=== PATIENT | male | born 1940 | race Caucasian/White ===

== ENCOUNTER 2019-02-22 09:55 | Inpatient (IN) | payer MEDICARE ==
[~2019-02-22] VITALS: Ht 177.8 cm; Wt 68.0 kg
[2019-02-22 10:25] LABS: HEMATOCRIT 35 % (40-54); HEMOGLOBIN 11.9 G/DL (13.3-17.7); MEAN CORPUSCULAR HEMOGLOBIN 31 PG (25-34); MEAN CORPUSCULAR HGB CONC 34 G/DL (32-36); MEAN CORPUSCULAR VOLUME 90 FL (80-99); PLATELET COUNT 259 10^3/uL (130-400); RED CELL DISTRIBUTION WIDTH 13.7 % (10.0-14.5); WHITE BLOOD COUNT 7.5 10^3/uL (4.3-11.0)
[2019-02-22 10:26] LABS: BASOPHILS % (AUTO) 1 % (0-10); EOSINOPHILS # (AUTO) 0.3 10^3/uL (0.0-0.3); EOSINOPHILS % (AUTO) 4 % (0-10); LYMPHOCYTES % (AUTO) 26 % (12-44); MEAN PLATELET VOLUME 8.8 FL (7.4-10.4); MONOCYTES # (AUTO) 0.8 X 10^3 (0.0-1.0); MONOCYTES % (AUTO) 11 % (0-12); NEUTROPHILS # (AUTO) 4.3 X 10^3 (1.8-7.8); NEUTROPHILS % (AUTO) 57 % (42-75)
[2019-02-22] MEDS ORDERED: ASPIRIN 81 MG CHEW (CHILDREN'S ASA) PO ONE (10:30)
--- NOTE | 2019-02-22 10:34 | Diagnostic Imaging Report ---
Indication: Chest pain, shortness of breath. FINDINGS: The lungs are clear although hyperexpanded. The lungs are hyperexpanded. There is some developing infiltrate in the right perihilar and medial right lung base is suspected. Correlate for clinical findings of pneumonia. There is no overt failure pattern. No pleural fluid. Impression: Air trapping and likely COPD however medial right basilar and infrahilar developing infiltrate radiographically suggested. Dictated by: Dictated on workstation # [id number]
[2019-02-22 10:39] LABS: PROTHROMBIN TIME PATIENT 13.5 SEC (12.2-14.7)
[2019-02-22] MEDS ORDERED: cefTRIAXone FOR IV USE 1,000 MG in WATER (STERILE) FOR INJECTION 10 ML IV ONE (10:45)
[2019-02-22 10:53] LABS: BUN/CREATININE RATIO 20; CARBON DIOXIDE 18 MMOL/L (21-32); CHLORIDE 102 MMOL/L (98-107); CREATININE SERUM 1.88 MG/DL (0.60-1.30); GFR ESTIMATED 35; SODIUM 138 MMOL/L (135-145)
[2019-02-22 10:54] LABS: ALANINE AMINOTRANSFERASE 10 U/L (0-55); ALBUMIN 4.3 GM/DL (3.2-4.5); ALKALINE PHOSPHATASE 85 U/L (40-136); BILIRUBIN,TOTAL 0.4 MG/DL (0.1-1.0); CALCIUM 9.9 MG/DL (8.5-10.1); GLUCOSE 180 MG/DL (70-105); TOTAL PROTEIN 7.3 GM/DL (6.4-8.2)
--- NOTE | 2019-02-22 11:00 | NUR ---
Report called to Karen MI.
--- NOTE | 2019-02-22 11:15 | NUR ---
EMS departing at this time. NIBP 106/56. HR-83 regular.
--- NOTE | 2019-02-22 11:23 | ED Chest Pain ---
General Chief Complaint: Chest Pain Stated Complaint: CHEST PAIN,ABD PAIN Nursing Triage Note: Pt arrival to ER via [facility] reporting 911 call for CP and abd distention. CP began as "indigestion" c/o 299 and abd distention began 844. Pt has Alzheimers and cannot describe or elaborate sx. helps with caregiving. No meds administered. Nursing Sepsis Screen: No Definite Risk Source: patient, family, EMS Exam Limitations: no limitations History of Present Illness Date Seen by Provider: Feb 22, 2019 Time Seen by Provider: 09:57 Initial Comments This 78-year-old gentleman presents to the emergency room via EMS after developing chest pain this morning around 03:00. Family became concerned about his chest pain and he seemed to have difficulty breathing. EMS was activated by family. Patient has dementia but is normally independent of his activities of daily living. He normally dresses himself, makes a pot of coffee, and takes the dog out as part of his morning routine. Blood sugar for EMS was 170. EMS reports blood pressures were widely variable with systolic blood pressures ranging anywhere from 87 to the 200s. Oxygen saturation was 87 percent on room air. They applied nasal cannula at 2 L/m. Patient denies any history of cardiac problems other than syncope and some rhythm issues years ago at [facility] in [place]. He was put on carvedilol at that time and has not had any problems since. Blood pressure on arrival is 95/60 with a MAP of 67. Patient reports pain is worse with inspiration and he feels a little short of breath. Allergies and Home Medications Allergies Coded Allergies: No Known Drug Allergies (Unverified , 02/22/19) Patient Home Medication List Home Medication List Reviewed: Yes Review of Systems Review of Systems Constitutional: no symptoms reported EENTM: No Symptoms Reported Respiratory: See HPI Cardiovascular: See HPI Gastrointestinal: See HPI Genitourinary: No Symptoms Reported Musculoskeletal: no symptoms reported Skin: no symptoms reported Psychiatric/Neurological: See HPI Endocrine: See HPI Hematologic/Lymphatic: No Symptoms Reported Past Avkxlpk-Etrciu-Rydhbs Hx Past Med/Social Hx: Reviewed and Corrections made Patient Social History Alcohol Use: Denies Use Recreational Drug Use: No Smoking Status: Former Smoker Type Used: Cigarettes Former Smoker, Quit: Jun 25, 1976 2nd Hand Smoke Exposure: No Recent Foreign Travel: No Contact w/Someone Who Travel: No Recent Infectious Disease Expo: No Recent Hopitalizations: No Physical Abuse: No Sexual Abuse: No Mistreated: No Fear: No Immunizations Up To Date Tetanus Booster (TDap): Unknown Seasonal Allergies Seasonal Allergies: No Past Medical History Surgeries: Yes (ELBOW FX, KNEE, AND FINGER) Orthopedic Respiratory: No Cardiac: Yes High Cholesterol, Irregular Heartbeat, Syncope Neurological: Yes (ALZHEIMERS) Dementia Genitourinary: Yes Benign Prostatic Hyperpl Gastrointestinal: No Musculoskeletal: Yes Gout Endocrine: Yes Diabetes, Non-Insulin dep HEENT: No Cancer: No Psychosocial: No Integumentary: No Blood Disorders: No Physical Exam Vital Signs Vital Signs - First Documented 02/22/19 10:00 FiO2 93 Capillary Refill : Less Than 3 Seconds Height, Weight, BMI Height: 5'10.00" Weight: 150lbs. oz. 68.816596sl; BMI Method:Actual General Appearance: No Apparent Distress, WD/WN HEENT: PERRL/EOMI, Normal ENT Inspection, Pharynx Normal Neck: Normal Inspection; No JVD Respiratory: No Accessory Muscle Use, No Respiratory Distress, Crackles (bibasal are, right greater than left), Other (subtle increased work of breathing) Cardiovascular: Regular Rate, Rhythm, No Edema, No Murmur, Normal Peripheral Pulses Gastrointestinal: Normal Bowel Sounds, Non Tender, Soft Extremity: Normal Capillary Refill, Normal Inspection, No Pedal Edema Neurologic/Psychiatric: Alert, No Motor/Sensory Deficits, Normal Mood/Affect, card lacer II-XII Norm as Tested, Other (dementia at baseline) Skin: Normal Color, Warm/Dry Focused Exam Lactate Level 02/22/19 10:10: Lactic Acid Level 2.25*H Lactic Acid Level Laboratory Tests Test 02/22/19 10:10 Lactic Acid Level 2.25 MMOL/L (0.50-2.00) *H Progress/Results/Core Measures Results/Orders Lab Results Laboratory Tests Test 02/22/19 10:10 Range/Units White Blood Count 7.5 4.3-11.0 10^3/uL Red Blood Count 3.86 L 4.35-5.85 10^6/uL Hemoglobin 11.9 L 13.3-17.7 G/DL Hematocrit 35 L 40-54 % Mean Corpuscular Volume 90 80-99 FL Mean Corpuscular Hemoglobin 31 25-34 PG Mean Corpuscular Hemoglobin Concent 34 32-36 G/DL Red Cell Distribution Width 13.7 10.0-14.5 % Platelet Count 259 130-400 10^3/uL Mean Platelet Volume 8.8 7.4-10.4 FL Neutrophils (%) (Auto) 57 42-75 % Lymphocytes (%) (Auto) 26 12-44 % Monocytes (%) (Auto) 11 0-12 % Eosinophils (%) (Auto) 4 0-10 % Basophils (%) (Auto) 1 0-10 % Neutrophils # (Auto) 4.3 1.8-7.8 X 10^3 Lymphocytes # (Auto) 2.0 1.0-4.0 X 10^3 Monocytes # (Auto) 0.8 0.0-1.0 X 10^3 Eosinophils # (Auto) 0.3 0.0-0.3 10^3/uL Basophils # (Auto) 0.0 0.0-0.1 10^3/uL Prothrombin Time 13.5 12.2-14.7 SEC INR Comment 1.0 0.8-1.4 Activated Partial Thromboplast Time 30 24-35 SEC Sodium Level 138 135-145 MMOL/L Potassium Level 5.0 3.6-5.0 MMOL/L Chloride Level 102 98-107 MMOL/L Carbon Dioxide Level 18 L 21-32 MMOL/L Anion Gap 18 H 5-14 MMOL/L Blood Urea Nitrogen 37 H 7-18 MG/DL Creatinine 1.88 H 0.60-1.30 MG/DL Estimat Glomerular Filtration Rate 35 BUN/Creatinine Ratio 20 Glucose Level 180 H 70-105 MG/DL Lactic Acid Level 2.25 *H 0.50-2.00 MMOL/L Calcium Level 9.9 8.5-10.1 MG/DL Corrected Calcium 9.7 8.5-10.1 MG/DL Total Bilirubin 0.4 0.1-1.0 MG/DL Aspartate Amino Transf (AST/SGOT) 13 5-34 U/L Alanine Aminotransferase (ALT/SGPT) 10 0-55 U/L Alkaline Phosphatase 85 40-136 U/L Troponin I < 0.30 <0.30 NG/ML Pro-B-Type Natriuretic Peptide 2363.0 H <75.0 PG/ML Total Protein 7.3 6.4-8.2 GM/DL Albumin 4.3 3.2-4.5 GM/DL My Orders Orders - ELVIA KING MD Cbc With Automated Diff (02/22/19 10:01) Comprehensive Metabolic Panel (02/22/19 10:01) Blood Culture (02/22/19 10:01) Sputum Culture (02/22/19 10:01) Urinalysis (02/22/19 10:01) Urine Culture (02/22/19 10:01) Protime With Inr (02/22/19 10:01) Partial Thromboplastin Time (02/22/19 10:01) Chest 1 View Ap/Pa Only (02/22/19 10:01) Ed Iv/Invasive Line Start (02/22/19 10:01) Ed Iv/Invasive Line Start (02/22/19 10:01) Vital Signs Adult Sepsis Patie Q15M (02/22/19 10:01) O2 (02/22/19 10:01) Remove Rings In Anticipation O (02/22/19 10:01) Lactic Acid Analyzer (02/22/19 10:01) Troponin I (02/22/19 10:01) Probnp Fs (02/22/19 10:01) Ekg Tracing (02/22/19 10:01) Monitor-Rhythm Ecg Trace Only (02/22/19 10:01) Aspirin Chewable Tablet (Baby Aspirin Ch (02/22/19 10:30) Ceftriaxone For Iv Use (Rocephin For I (02/22/19 10:45) Medications Given in ED Current Medications Medications Dose Ordered Sig/Chandan Route Start Time Stop Time Status Last Admin Dose Admin Aspirin 324 mg ONCE ONCE PO 02/22/19 10:30 02/22/19 10:31 DC 02/22/19 10:46 324 MG Vital Signs/I&O 02/22/19 02/22/19 02/22/19 09:55 09:55 10:00 Temp 97.0 Pulse 90 Resp 24 B/P (MAP) 95/60 (72) Pulse Ox 92 O2 Delivery Nasal Cannula Nasal Cannula Nasal Cannula O2 Flow Rate 2.00 3.0 3.00 FiO2 93 Blood Pressure Mean: 72 Progress Progress Note : Time: 11:18 Progress Note Patient presented with chest pain. There is also some concern for possible sepsis as he had pleuritic chest pain and was thought to be hypotensive in the field. Chest pain workup and septic workup were pursued. There was some suggestion of infiltrate on chest x-ray. Blood cultures and lactic acid were drawn and Rocephin was administered. Patient received aspirin. He did not require any treatment for pain. Nitroglycerin was not administered due to marginal blood pressures. IV fluids were initiated by EMS and continued. He received about 800 mL prior to transfer. Systolic blood pressure remained above 90 and MAP remained above 65 throughout his ER stay. Case was discussed with Dr. Francisco and EKG was reviewed by him. He requested transfer to the ICU at [place] as soon as possible. He departed from [place] at 11:20 in route to [facility]. Dr. Swain was the accepting physician. Dr. Sanders was also consulted. Initial ECG Impression Date: Feb 22, 2019 Initial ECG Impression Time: 10:02 Initial ECG Rate: 88 Initial ECG Rhythm: Normal Sinus Comment Sinus rhythm with ST depression most prominent in V4 and V5. No abnormal intervals or axis deviation. EKG was suggestive of ischemia. Diagnostic Imaging Diagonstic Imaging: Xray Plain Films/CT/US/NM/MRI: chest Comments Chest x-ray viewed by me and report reviewed. See report below: NAME: DANITZA MCINTYRE [facility] REC#: [id number] PT STATUS: ADM IN : 1940 PHYSICIAN: ELVIA KING MD ADMIT DATE: 02/22/19/ICU Signed Date of Exam: 02/22/19 CHEST 1 VIEW AP/PA ONLY Indication: Chest pain, shortness of breath. FINDINGS: The lungs are clear although hyperexpanded. The lungs are hyperexpanded. There is some developing infiltrate in the right perihilar and medial right lung base is suspected. Correlate for clinical findings of pneumonia. There is no overt failure pattern. No pleural fluid. Impression: Air trapping and likely COPD however medial right basilar and infrahilar developing infiltrate radiographically suggested. Dictated by: Dictated on workstation # [id number] Dict: 02/22/19 1027 Trans: 02/22/19 1103 Interpreted by: BRADLY CAZARES Electronically signed by: BRADLY CAZARES 02/22/19 1103 Departure Communication (Admissions) Time/Spoke to Admitting Phy: 10:20 Dr. Swain 11:16 Dr. Sanders 10:10 Dr. Francisco Impression Primary Impression: ST segment depression Additional Impressions: Chest pain Qualified Codes: R07.9 - Chest pain, unspecified Hypoxia Pulmonary infiltrate Renal failure Qualified Codes: N19 - Unspecified kidney failure Disposition: ADMITTED INPATIENT Condition: Improved Admissions Decision to Admit Reason: Admit from ER (General) Decision to Admit/Date: Feb 22, 2019 Time/Decision to Admit Time: 10:10 Transfer Time Spoke to Accepting Phy: 10:20 Transfer Progress Notes Patient was accepted for transfer to [facility] to the hospitalist service under Dr. Swain. Dr. Francisco and Dr. Sanders accept consult. Transfer Time: 11:18 Transfer Facility: [facility] Method of Transfer: EMS Departure-Patient Inst. Referrals: ROCIO MEZA DO (PCP/Family) Primary Care Physician ELVIA KING MD Feb 22, 2019 11:23
--- NOTE | 2019-02-22 11:27 | History & Physical-Hospitalist ---
History of Present Illness HPI/Chief Complaint Pt is an 78yoCM with a PMH of dementia, arrhythmia, and NIDDMII who presented to the ER with CC of chest pain. Family states it has been going on for a few weeks and they believed it to be indigestion and were trying to treat him with Tums and Pepcid. Despite this he continued to worsen and today brought him to the ER for evaluation by EMS. EMS reported hypotension in the field. He was found to have ST depression on EKG and was mildly hypotensive. Dr Escamilla discused the case with senior mobile solutions architect credentialing analyst who recommended expediated transfer to [facility] for evaluation for possible ACS. Upon work up he was found to have a pneumonia on CXR and was started on Rocephin. He is unable to provide any of this history due to dementia. His and daughter are at bedside to supplement history from the records. Source: family Exam Limitations: clinical condition Date Seen 02/22/19 Time Seen by a Provider: 11:22 Attending Physician Sheila Swain MD PCP Miguel Jolly DO Referring Physician Date of Admission Feb 22, 2019 at 10:44 Home Medications & Allergies Home Medications Reviewed patient Home Medication Reconciliation performed by pharmacy medication reconciliations morgue technician and/or nursing. Patients Allergies have been reviewed. Allergies Allergies Coded Allergies No Known Drug Allergies (Unverified02/22/19) Past Etwnrku-Hopask-Opzvef Hx Past Med/Social Hx: Reviewed Nursing Past Med/Soc Hx Patient Social History Marrital Status: Alcohol Use: Denies Use Recreational Drug Use: No Smoking Status: Former Smoker Former Smoker, Quit: Jun 25, 1976 Type Used: Cigarettes 2nd Hand Smoke Exposure: No Recent Foreign Travel: No Contact w/other who traveled: No Recent Hopitalizations: No Recent Infectious Disease Expo: No Immunizations Up To Date Tetanus Booster (TDap): Unknown Seasonal Allergies Seasonal Allergies: No Past Medical History Surgeries: Orthopedic Cardiac: High Cholesterol, Irregular Heartbeat Neurological: Dementia Genitourinary: Benign Prostatic Hyperpl Musculoskeletal: Gout Endocrine: Diabetes, Non-Insulin dep History of Blood Disorders: No Family History Reviewed Nursing Family Hx No Pertinent Family Hx Review of Systems ROS-Unable to Obtain: dementia Constitutional: see HPI Cardiovascular: chest pain Gastrointestinal: abdominal pain Physical Exam Physical Exam Vital Signs Vital Signs - First Documented 02/22/19 10:00 FiO2 93 Capillary Refill : Less Than 3 Seconds Height, Weight, BMI Height: 5'10.00" Weight: 150lbs. oz. 68.369023hh; BMI Method:Actual General Appearance: No Apparent Distress, Chronically ill, Thin HEENT: Moist Mucous Membranes; No Scleral Icterus (L), No Scleral Icterus (R) Neck: Non Tender, Supple; No JVD, No Thyromegaly Respiratory: Lungs Clear, No Respiratory Distress Cardiovascular: Regular Rate, Rhythm, No Murmur Gastrointestinal: Normal Bowel Sounds, Non Tender, Soft Extremity: Normal Capillary Refill, No Calf Tenderness, No Pedal Edema Neurologic/Psychiatric: Alert; No Aphasia; Disoriented; No Facial Droop Skin: Normal Color, Warm/Dry Results Results/Procedures Labs Laboratory Tests 02/22/19 10:10 Patient resulted labs reviewed. Imaging: Reviewed Imaging Report Assessment/Plan Admission Diagnosis CAP- right sided Admission Status: Inpatient Order (span 2 midnights) Reason for Inpatient Admission: see below Assessment and Plan right sided pneumonia- CAP PNA on CXR Elevated lactic but no other SIRS criteria Continue on Rocephin and Azithro Await cultures Chest pain ST depression on EKG Cardiology consulted, appreciate recs Troponin negative on presentation- will trend Plan for cardiac cath per Dr Francisco Dementia at baseline, advanced NIDDMII SSI Hold metformin in case need for cath Update: Returned to bedside at 1515 after cardiac cath to discuss results and goals of care. Cardiac cath revealed diffuse multivessel disease. Arrangements had originally kierra made to transfer to [facility] but family has elected not to pursue surgical management of CAD. Discussed at length their goals and ultimately they would like to proceed with treating his comfort only. Will transition to comfort measures only. If he stabilizes they would like discharge home with [facility]. Referral made to [facility]. Will transfer to the 4th floor. Time spent with family discussing goals of care [id number]. Diagnosis/Problems Diagnosis/Problems (1) ST segment depression Status: Acute (2) Chest pain Status: Acute Qualifiers: Chest pain type: unspecified Qualified Codes: R07.9 - Chest pain, unspecified (3) Pulmonary infiltrate Status: Acute (4) Hypoxia Status: Acute (5) Counseling regarding end of life decision making Clinical Quality Measures AMI/AHF: ASA po Prior to arrival: SHEILA Cantu MD Feb 22, 2019 11:27 am
[2019-02-22] MEDS ORDERED: BENZONATATE 100 MG (TESSALON) CAPSULE PO PRN (11:45)
[2019-02-22] MEDS ORDERED: ANTACID SUSP 30 ML UDC (MYLANTA) PO PRN (11:45)
[2019-02-22] MEDS ORDERED: ONDANSETRON 4 MG/2 ML (SDV) Z0FRAN IV PRN (11:45)
[2019-02-22] MEDS ORDERED: MELATONIN 3 MG TABLET PO PRN (11:45)
[2019-02-22] MEDS ORDERED: MILK OF MAGNESIA 400 MG/5 ML 30 ML UDC PO PRN (11:45)
[2019-02-22] MEDS ORDERED: ACETAMINOPHEN 325 MG TABLET PO PRN (11:45)
[2019-02-22] MEDS ORDERED: LIDOCAINE 1% INJ 20 ML 20 ML VIAL ONE (12:20)
[2019-02-22] MEDS ORDERED: fentaNYL INJECTION 100 MCG/2 ML AMP ONE (12:21)
[2019-02-22] MEDS ORDERED: HEParin (CATH LAB) 1,000 ML IV ONE ×2 (12:21→12:22)
[2019-02-22] MEDS ORDERED: NS IV 1000 ML 1,000 ML ONE (12:21)
[2019-02-22] MEDS ORDERED: MIDAZOLAM 5 MG/5 ML (VERSED) VIAL ONE (12:21)
--- NOTE | 2019-02-22 12:35 | Consultation-Cardiology ---
HPI-Cardiology Cardiology Consultation Date of Consultation 02/22/19 Date of Admission Time Seen by Provider: 12:31 Indication: chest pain HPI 78 years old gentleman with history of hypertension, hyperlipidemia and diabetes mellitus. Has been having chest pain on and off for the past 2 weeks described it as dull in nature in the retrosternal area, patient is a poor historian, h istory was obtained by interviewing his . No shortness of breath, syncope or near syncopal episode. Has been having generalized weakness, brought to [place] emergency room and noted to have ST depression in the anterolateral leads. Transferred to our institution for further evaluation Home Medications & Allergies Allergies: Coded Allergies: No Known Drug Allergies (Unverified , 02/22/19) Home Medication List Reviewed: Yes XKU-Yhcepk-Qnswgn Hx Patient Social History Marital Status: Alcohol Use: Denies Use Recreational Drug Use: No Smoking Status: Former Smoker Type Used: Cigarettes 2nd Hand Smoke Exposure: No Recent Foreign Travel: No Recent Infectious Disease Expo: No Recent Hopitalizations: No Immunizations Up To Date Tetanus Booster (TDap): Unknown Past Medical History as described below Family Medical History Significant Family History: No Pertinent Family Hx Family Medical Hx noncontributory to his current condition Review of Systems-General Review of Systems Constitutional: see HPI, malaise, weakness EENTM: see HPI, no symptoms reported Respiratory: see HPI; No cough; dyspnea on exertion; No hemoptysis, No orthopnea, No phlegm, No short of breath, No stridor, No wheezing, No other Cardiovascular: see HPI, chest pain; No edema, No Hx of Intervention, No palpitations, No syncope, No vascular heart diseas, No other Gastrointestinal: see HPI, abdominal pain Genitourinary: see HPI Musculoskeletal: see HPI Skin: see HPI Psychiatric/Neurological: See HPI Reviewed Test Results Reviewed Test Results Lab Laboratory Tests Test 02/22/19 10:10 Range/Units White Blood Count 7.5 4.3-11.0 10^3/uL Red Blood Count 3.86 L 4.35-5.85 10^6/uL Hemoglobin 11.9 L 13.3-17.7 G/DL Hematocrit 35 L 40-54 % Mean Corpuscular Volume 90 80-99 FL Mean Corpuscular Hemoglobin 31 25-34 PG Mean Corpuscular Hemoglobin Concent 34 32-36 G/DL Red Cell Distribution Width 13.7 10.0-14.5 % Platelet Count 259 130-400 10^3/uL Mean Platelet Volume 8.8 7.4-10.4 FL Neutrophils (%) (Auto) 57 42-75 % Lymphocytes (%) (Auto) 26 12-44 % Monocytes (%) (Auto) 11 0-12 % Eosinophils (%) (Auto) 4 0-10 % Basophils (%) (Auto) 1 0-10 % Neutrophils # (Auto) 4.3 1.8-7.8 X 10^3 Lymphocytes # (Auto) 2.0 1.0-4.0 X 10^3 Monocytes # (Auto) 0.8 0.0-1.0 X 10^3 Eosinophils # (Auto) 0.3 0.0-0.3 10^3/uL Basophils # (Auto) 0.0 0.0-0.1 10^3/uL Prothrombin Time 13.5 12.2-14.7 SEC INR Comment 1.0 0.8-1.4 Activated Partial Thromboplast Time 30 24-35 SEC Sodium Level 138 135-145 MMOL/L Potassium Level 5.0 3.6-5.0 MMOL/L Chloride Level 102 98-107 MMOL/L Carbon Dioxide Level 18 L 21-32 MMOL/L Anion Gap 18 H 5-14 MMOL/L Blood Urea Nitrogen 37 H 7-18 MG/DL Creatinine 1.88 H 0.60-1.30 MG/DL Estimat Glomerular Filtration Rate 35 BUN/Creatinine Ratio 20 Glucose Level 180 H 70-105 MG/DL Lactic Acid Level 2.25 *H 0.50-2.00 MMOL/L Calcium Level 9.9 8.5-10.1 MG/DL Corrected Calcium 9.7 8.5-10.1 MG/DL Total Bilirubin 0.4 0.1-1.0 MG/DL Aspartate Amino Transf (AST/SGOT) 13 5-34 U/L Alanine Aminotransferase (ALT/SGPT) 10 0-55 U/L Alkaline Phosphatase 85 40-136 U/L Troponin I < 0.30 <0.30 NG/ML Pro-B-Type Natriuretic Peptide 2363.0 H <75.0 PG/ML Total Protein 7.3 6.4-8.2 GM/DL Albumin 4.3 3.2-4.5 GM/DL Physical Exam Physical Exam Vital Signs Vital Signs - First Documented 02/22/19 10:00 FiO2 93 Capillary Refill : Less Than 3 Seconds Height, Weight, BMI Height: 5'10.00" Weight: 150lbs. oz. 68.407517jx; BMI Method:Actual General Appearance: No Apparent Distress, WD/WN Eyes: Bilateral Eye Normal Inspection, Bilateral Eye PERRL, Bilateral Eye EOMI HEENT: PERRL/EOMI, Normal ENT Inspection, Pharynx Normal Neck: Normal Inspection; No JVD Respiratory: No Accessory Muscle Use, No Respiratory Distress, Crackles (bibasal are, right greater than left), Other (subtle increased work of breathing) Cardiovascular: Regular Rate, Rhythm, No Edema, No Murmur, Normal Peripheral Pulses, Gallop/S3 Gastrointestinal: Normal Bowel Sounds, Non Tender, Soft Back: Normal Inspection, No CVA Tenderness, No Vertebral Tenderness Extremity: Normal Capillary Refill, Normal Inspection, No Pedal Edema Neurologic/Psychiatric: Alert, No Motor/Sensory Deficits, Normal Mood/Affect, dolly pusher II-XII Norm as Tested, Other (dementia at baseline) Skin: Normal Color, Warm/Dry Lymphatic: No Adenopathy A/P-Cardiology Admission Diagnosis Unstable angina Coronary artery disease Hypertension Hyperlipidemia Assessment/Plan Unstable angina, nondiagnostic EKG changes, cardiac enzymes were negative. Discussed with the patient and his the management plan, conservative management versus cardiac catheterization, family requested to proceed with cardiac catheterization, I will evaluate his coronary anatomy and decide on the management plan. Next Recurrent chest pain, having active chest pain at this point. Nondiagnostic EKG changes. Acute kidney injury, start IV fluid and monitor renal function Hyperlipidemia, maintained on statin, monitor blood pressure Hypertension, monitor blood pressure Diabetes mellitus, followed and managed by primary care physician Alzheimer dementia Clinical Quality Measures AMI/AHF: ASA po Prior to arrival: CHASITY De La Cruz MD Feb 22, 2019 12:35
--- NOTE | 2019-02-22 12:36 | Cardiac Procedure Note-CS/ASA ---
Pre-Procedure Note Pre-Op Procedure Note H&P Reviewed The H&P was reviewed, patient examined and no changes noted. Date H&P Reviewed: Feb 22, 2019 Time H&P Reviewed: 12:35 Conscious Sedation Pre-Proced Time 12:35 ASA Score 3 For ASA 3 and 4: Consider anesthesia and medical clearance. Also, for patients with a history of failed moderate sedation consider anesthesia. Airway Lungs Heart ASA score ASA 1: a normal healthy patient ASA 2: a patient with a mild systemic disease (mid diabetes, controlled hypertension, obesity x ASA 3: a patient with a severe systemic disease that limits activity (angina, COPD, prior Myocardial infarction) ASA 4: a patient with an incapacitating disease that is a constant threat to life (CHF, renal failure) ASA 5: a moribund patient not expected to survive 24 hrs. (ruptured aneurysm) ASA 6: a declared brain- patient whose organs are being harvested. For emergent operations, add the letter E after the classification Mallampati Classification Grade 3 Sedation Plan Analgesia, Amnesia, Plan communicated to team members, Discussed options with patient/fam, Discussed risks with patient/fam The patient is an appropriate candidate to undergo the planned procedure, sedation, and anesthesia. The patient immediately re-assessed prior to indication. CHASITY ROTHMAN MD Feb 22, 2019 12:36
[2019-02-22] MEDS ORDERED: fentaNYL INJECTION 100 MCG/2 ML AMP IV PRN (12:45)
[2019-02-22] MEDS ORDERED: NS IV 1000 ML 1,000 ML IV SCH (13:36)
[2019-02-22] MEDS ORDERED: PATIENT MAY USE OWN MEDS, ALL PO SCH (13:45)
--- NOTE | 2019-02-22 13:45 | NUR ---
PT TO RETAIL PHARMACY MANAGER AT 1245 VIA BED ACCOMPANIED BY RETAIL PHARMACY MANAGER STAFF.
--- NOTE | 2019-02-22 13:57 | Cardiac Cath Report ---
Cardiac Cath Report Physician (s)/Manager Ui (s) Physician CHASITY ROTHMAN MD Pre-Procedure Diagnosis Pre-Procedure Diagnosis: Unstable angina Post-Procedure Note Procedure Start Date: Feb 22, 2019 Name of Procedure: left heart catheterization Findings/Procedure Note PROCEDURE NOTE: 78 years old gentleman with unstable angina, multiple risk factors, EKG abnormality, brought to the catheter lab for cardiac catheterization. After explaining the procedure to the patient, all pros and cons were explained, all questions were answered. The patient signed the consent and then he was placed on the cardiac catheterization laboratory. Groin was prepped SL fashion local anesthesia was used. Sheath placed in the artery. Lianet right and left catheter were used to access the coronary system. Lianet right was prolapse of the left ventricular cavity, pressure was measured, pullback LV to aorta was done, left ventriculogram was done At the end of the procedure the sheath was removed. Closure device was used FINDINGS: Hemodynamics LV 86/19, end-diastolic pressure of 19 Aorta 88/50 mean of 61 ANATOMY: Left Main has severe disease Left Anterior Descending has diffuse moderate disease multiple segment of severe disease at the mid and distal portion Left Circumflex has moderate to severe disease mid portion, the study there is severe disease Right Coronory Artery is small with multiple segment of severe stenosis LV Gram is prominent left ventricular hypertrophy, ST and ejection fraction 50 percent CONCLUSION: 1. Severe multivessel coronary artery disease including severe left main, LAD, circumflex artery and right coronary artery 2. Preserved left ventricular systolic function, elevated left ventricular end- diastolic pressure DISCUSSION AND RECOMMENDATION: Patient suffered from underlying dementia, he will be considered high risk for bypass surgery, recovery will be difficult. Had a long discussion with the family regarding bypass surgery versus high risk intervention on the LAD and left main versus palliative care. At this time family would like to explore the possibility of transferring care to a tertiary care center for possible bypass surgery are high risk intervention. Anesthesia Type: Conscious Sedation Estimated blood loss (mL): 15 ml Contrast Amount: 21 ml Total Radiation Dose: 222 mGy Post-Procedure Diagnosis Post-operative diagnosis: Unstable angina Coronary artery disease Hyperlipidemia Diabetes mellitus CHASITY ROTHMAN MD Feb 22, 2019 13:57
[2019-02-22 14:00] VITALS: BP 86/51
[2019-02-22 15:00] VITALS: BP 60/40
[2019-02-22] MEDS ORDERED: NS IV 500 ML 500 ML ONE (15:00)
--- NOTE | 2019-02-22 15:31 | NUR ---
1355 PT BACK TO ROOM ICU1, REPORT RECEIVED FROM Vipul WILSON RN.
--- NOTE | 2019-02-22 15:33 | NUR ---
1430 PT'S FAMILY TEARFUL AT BEDSIDE QUESTIONING [facility] OR NOT PT SHOULD BE TRANSFERRED TO , [facility] HAS BEEN IN CONTACT WITH THIS DISC RECORDIST SEVERAL TIMES SINCE COMING BACK TO THE FLOOR. PT FAMILY IN AGREEMENT AT THIS TIME THEY WANT TO CANCEL [facility] TRANSFER. EDER NOTIFIED WELL DR ROTHMAN. 1445 DR KEITA NOTIFIED OF PT'S CONDITION,BP NOTED AT 60/40'S ORDERS TO GIVE A 500 CC FLUID BOLUS GIVEN VIA TELEPHONE FROM DR KEITA. FAMILY IN AGREEMENT TO MAKE PT DNR.
[2019-02-22] MEDS ORDERED: morphine INJ 4 MG/ML 1 ML (VIAL/SYRINGE) ONE (15:36)
[2019-02-22] MEDS ORDERED: ACETAMINOPHEN 650 MG SUPP (TYLENOL) PR PRN (15:45)
[2019-02-22] MEDS ORDERED: LORazepam INJ 2 MG/ML (ATIVAN) VIAL IVP PRN (15:45)
[2019-02-22] MEDS ORDERED: ARTIFICAL TEARS 0.4 ML UNIT DOSE (REFRESH PLUS) OU PRN (15:45)
[2019-02-22] MEDS ORDERED: BISACODYL 10 MG SUPP (DULCOLAX) PR PRN (15:45)
[2019-02-22] MEDS ORDERED: PROMETHAZINE INJ 25 MG/ML (PHENERGAN) AMP IVP PRN (15:45)
[2019-02-22] MEDS ORDERED: ATROPINE 1% OPHTHALMIC SOLN 2 ML SL PRN (15:45)
[2019-02-22] MEDS ORDERED: GLYCOPYRROLATE 0.2 MG/ML (ROBINUL) 2 ML VIAL IV PRN (15:45)
[2019-02-22] MEDS ORDERED: morphine (ROXINOL) 10 MG/0.5 ML oral conc 0.5 ML PO PRN (15:45)
[2019-02-22] MEDS ORDERED: SCOPOLAMINE 1.5 MG (TRANSDERM-SCOP) PATCH TOP SCH (15:45)
[2019-02-22] MEDS ORDERED: RT-ALBUTEROL/IPRATROPIUM 3 ML (DUONEB) VIAL INH PRN (15:45)
[2019-02-22] MEDS ORDERED: SALIVA STIMULANT MOUTH SPRAY (BIOTENE) 1.5 OZ MM PRN (15:45)
[2019-02-22] MEDS ORDERED: LORazepam ORAL CONCENTRATE 2 MG/ML 30 ML (ATIVAN) PO PRN (15:45)
[2019-02-22] MEDS ORDERED: ONDANSETRON 4 MG/2 ML (SDV) Z0FRAN IVP PRN (15:45)
[2019-02-22] MEDS: morphine INJ 4 MG/ML 1 ML (VIAL/SYRINGE) IV PRN ×4 (15:47→23:45)
--- NOTE | 2019-02-22 16:15 | NUR ---
orientated to room. call light within reach. checked groin no bleeding noted or hematoma noted at cath site.
--- NOTE | 2019-02-22 16:27 | NUR ---
1600 PT TRANSFERRED TO ROOM 420 VIA BED ACCOMPANIED BY FAMILY AND RN SENIOR SALES ASSOCIATE. REPORT GIVEN TO KARISSA MI.
[2019-02-22] MEDS ORDERED: ATORVASTATIN 80 MG (LIPITOR) TABLET PO SCH (21:00)
[2019-02-23] MEDS ORDERED: LORazepam INJ 2 MG/ML (ATIVAN) VIAL IVP PRN (00:15)
[2019-02-23] MEDS ORDERED: morphine INJ 4 MG/ML 1 ML (VIAL/SYRINGE) IV PRN (00:15)
--- NOTE | 2019-02-23 04:03 | NUR ---
PATIENT WITHOUT VITAL SIGNS AT 0015. VERIFIED BY THIS NURSE AND AMIE MI. DR KEITA NOTIFIED AT 0016. FAMILY STAYED WITH PATIENT UNTIL 0150, DECLINED PASTORAL CARE. HOME NOTIFIED AFTER FAMILY DEPARTED. HOME ARRIVED AT 0400 TO RETRIEVE BODY. PATIENT DENTURES, RING AND WATCH SENT WITH PATIENT.
--- NOTE | 2019-02-23 10:05 | Discharge Summary ---
Discharge Summary Date of Admission Feb 22, 2019 at 10:44 am Date of Discharge Discharge Date: Feb 23, 2019 Admission Diagnosis CAP- right sided Consults/Procedures Consulations Dr Francisco Comfort Measures/ End of Life Care: Comfort Measures, Hospice (Hospital) Discharge Diagnosis right sided pneumonia- CAP PNA on CXR Elevated lactic but no other SIRS criteria Continue on Rocephin and Azithro Await cultures Chest pain ST depression on EKG Cardiology consulted, appreciate recs Troponin negative on presentation- will trend Plan for cardiac cath per Dr Francisco Dementia at baseline, advanced NIDDMII SSI Hold metformin in case need for cath Update: Returned to bedside at 1515 after cardiac cath to discuss results and goals of care. Cardiac cath revealed diffuse multivessel disease. Arrangements had originally kierra made to transfer to [facility] but family has elected not to pursue surgical management of CAD. Discussed at length their goals and ultimately they would like to proceed with treating his comfort only. Will transition to comfort measures only. If he stabilizes they would like discharge home with [facility]. Referral made to [facility]. Will transfer to the 4th floor. Time spent with family discussing goals of care [id number]. (1) ST segment depression Status: Acute (2) Chest pain Status: Acute Qualifiers: Qualified Codes: R07.9 - Chest pain, unspecified (3) Pulmonary infiltrate Status: Acute (4) Hypoxia Status: Acute (5) Counseling regarding end of life decision making PREET KEITA MD Feb 23, 2019 10:05 am
== END 2019-02-23 06:00 | disposition expired | DRG 286 ==
LOC: ER FS 09:56 → ICU 10:44 → 4TH 16:02
PROVIDERS: ADMIT Family Medicine; ATTEND Family Medicine
PROC: 4A023N7 Measurement of Cardiac Sampling and Pressure, Left Heart, Percutaneous Approach (ICD-10-PCS; principal; 2019-02-22)
PROC: B2111ZZ Fluoroscopy of Multiple Coronary Arteries using Low Osmolar Contrast (ICD-10-PCS; 2019-02-22)
PROC: B2151ZZ Fluoroscopy of Left Heart using Low Osmolar Contrast (ICD-10-PCS; 2019-02-22)
DX: I25.110 Atherosclerotic heart disease of native coronary artery with unstable angina pectoris (principal); J18.9 Pneumonia, unspecified organism; N17.9 Acute kidney failure, unspecified; E11.9 Type 2 diabetes mellitus without complications; G30.9 Alzheimer's disease, unspecified; F02.80 Dementia in other diseases classified elsewhere, unspecified severity, without behavioral disturbance, psychotic disturbance, mood disturbance, and anxiety; I10 Essential (primary) hypertension; Z66 Do not resuscitate; Z51.5 Encounter for palliative care; E78.5 Hyperlipidemia, unspecified; M10.9 Gout, unspecified; N40.0 Benign prostatic hyperplasia without lower urinary tract symptoms; Z87.891 Personal history of nicotine dependence
CPT/HCPCS: 36415; 71045; 80053; 83605; 83880; 84484; 85025; 85610; 85730; 87040; 87081; 93005; 93041; 93458; 94760; 96374